=== PATIENT | male | born 1990 | race Caucasian/White ===

== ENCOUNTER 2017-06-12 18:54 | Emergency (ER) | payer SELFPAY ==
[~2017-06-12] VITALS: Ht 172.7 cm; Wt 95.0 kg
[2017-06-12] MEDS ORDERED: KETOROLAC 60MG/2ML VIAL IM STA (21:16)
[2017-06-13] MEDS ORDERED: KETOROLAC 60MG/2ML VIAL IM SCH (02:25)
[2017-06-13 03:10] VITALS: BP 117/71
== END 2017-06-13 03:17 | disposition home or self-care (01) ==
LOC: ER 19:00
DX: S16.1XXA Strain of muscle, fascia and tendon at neck level, initial encounter (principal); M79.661 Pain in right lower leg; V23.9XXA Unspecified motorcycle rider injured in collision with car, pick-up truck or van in traffic accident, initial encounter; Y93.89 Activity, other specified; Y92.89 Other specified places as the place of occurrence of the external cause; Y99.8 Other external cause status
CPT/HCPCS: 70450; 72125; 73590; 96372; 99284; J1885